=== PATIENT | female | born 1940 | race Caucasian/White ===

== ENCOUNTER 2023-03-08 07:54 | Inpatient (IN) | payer OTHER ==
[~2023-03-08] VITALS: Ht 172.7 cm; Wt 70.3 kg
[2023-03-08 07:55] VITALS: BP_SYST 121; PULSE 103; RESP 16; TEMP 97.5; O2SAT 98
[2023-03-08] MEDS ORDERED: MORPHINE 2 MG/ML INJ. SYRINGE IVP ONE (08:15)
[2023-03-08] MEDS ORDERED: MORPHINE 4 MG INJ. 4 MG/ML VIAL IVP ONE (10:45)
[2023-03-08] MEDS ORDERED: OLME20TA23 PO (10:55)
[2023-03-08] MEDS ORDERED: LEVO25TA7 PO (10:55)
[2023-03-08 11:13] LABS: BASOPHILS % (AUTO) 0.2 % (0.0-2.0); EOSINOPHILS % (AUTO) 0.1 % (0.0-4.0); HEMATOCRIT 37.6 % (36-48); HEMOGLOBIN 12.4 g/dL (12.0-16.0); LYMPHOCYTES # (AUTO) 1.2 K/uL (1.0-5.5); LYMPHOCYTES % (AUTO) 13.5 % (20.5-51.5); MEAN CORPUSCULAR HEMOGLOBIN 30 pg (27-31); MEAN CORPUSCULAR HGB CONC 33 % (32-36); MEAN CORPUSCULAR VOLUME 91 fL (79.0-98.0); MONOCYTES # (AUTO) 0.7 K/uL (0.0-1.0); MONOCYTES % (AUTO) 7.7 % (1.7-9.3); NEUTROPHILS # (AUTO) 6.8 K/uL (1.8-7.7); NEUTROPHILS % (AUTO) 78.5 % (40.0-70.0); PLATELET COUNT (AUTO) 279 K/uL (130-430); RED BLOOD CELL COUNT(AUTO) 4.11 MIL/uL (4.2-6.2); RED CELL DISTRIBUTION WIDTH 14.2 % (9.0-15.0); WHITE BLOOD COUNT (AUTO) 8.7 K/uL (4.8-10.8)
[2023-03-08 11:26] LABS: ANION GAP 10 (5-15); CARBON DIOXIDE 23 mmol/L (23-29); CHLORIDE 104 mmol/L (98-107); GLUCOSE 96 mg/dL (74-106); POTASSIUM 3.6 mmol/L (3.5-5.1); SODIUM SERUM 137 mmol/L (136-145); UREA NITROGEN, BLOOD 23 mg/dL (8-21)
[2023-03-08 11:29] LABS: PROTHROMBIN TIME 10.4 SECS (9.5-12.5)
[2023-03-08] MEDS ORDERED: HYDROmorphone 1 MG/ML INJ. CARTRIDGE IVP ONE (12:15)
[2023-03-08 15:34] LABS: PROTHROMBIN TIME 10.4 SECS (9.5-12.5)
[2023-03-08 17:15] VITALS: BP_SYST 140; PULSE 82; RESP 18; TEMP 98
[2023-03-08 20:00] VITALS: BP_SYST 123; PULSE 78; RESP 17; TEMP 97.7; O2SAT 96
[2023-03-08] MEDS ORDERED: traMADol HCL HCL 50 MG TABLET (ULTRAM) PO PRN (20:00)
[2023-03-08] MEDS ORDERED: HYDROmorphone 1 MG/ML INJ. CARTRIDGE IM PRN (23:45)
[2023-03-08] MEDS ORDERED: NALOXONE HCL 0.4 MG/ML AMP (NARCAN) IVP PRN (23:45)
[2023-03-09] VITALS: BP_SYST 122; PULSE 80; RESP 17; TEMP 98.2; O2SAT 97
[2023-03-09] MEDS ORDERED: HYDROmorphone 1 MG/ML INJ. CARTRIDGE IV PRN (00:15)
[2023-03-09 04:11] VITALS: O2SAT 98
[2023-03-09 05:08] LABS: BASOPHILS % (AUTO) 0.3 % (0.0-2.0); EOSINOPHILS % (AUTO) 0.2 % (0.0-4.0); HEMATOCRIT 34.6 % (36-48); HEMOGLOBIN 11.6 g/dL (12.0-16.0); LYMPHOCYTES # (AUTO) 1.5 K/uL (1.0-5.5); LYMPHOCYTES % (AUTO) 19.1 % (20.5-51.5); MEAN CORPUSCULAR HEMOGLOBIN 31 pg (27-31); MEAN CORPUSCULAR HGB CONC 34 % (32-36); MEAN CORPUSCULAR VOLUME 91 fL (79.0-98.0); MONOCYTES # (AUTO) 0.8 K/uL (0.0-1.0); MONOCYTES % (AUTO) 10.4 % (1.7-9.3); NEUTROPHILS # (AUTO) 5.6 K/uL (1.8-7.7); PLATELET COUNT (AUTO) 275 K/uL (130-430); RED BLOOD CELL COUNT(AUTO) 3.78 MIL/uL (4.2-6.2)
[2023-03-09 05:28] LABS: ANION GAP 11 (5-15); CALCIUM 8.9 mg/dL (8.4-11.0); CARBON DIOXIDE 24 mmol/L (23-29); CHLORIDE 105 mmol/L (98-107); CREATININE 0.68 mg/dL (0.55-1.30); GLUCOSE 100 mg/dL (74-106); POTASSIUM 3.7 mmol/L (3.5-5.1); SODIUM SERUM 140 mmol/L (136-145); UREA NITROGEN, BLOOD 28 mg/dL (8-21)
[2023-03-09] MEDS: LEVOTHYROXINE SODIUM 0.025 MG TABLET PO SCH (06:00)
[2023-03-09 08:00] VITALS: BP_SYST 133; PULSE 89; RESP 17; TEMP 98.1; O2SAT 96
[2023-03-09 08:30] VITALS: O2SAT 96
[2023-03-09] MEDS ORDERED: LOSARTAN POTASSIUM 50 MG TABLET (COZAAR) PO SCH (09:00)
[2023-03-09] MEDS: LOSARTAN POTASSIUM 50 MG TABLET (COZAAR) PO SCH (10:22)
[2023-03-09] MEDS ORDERED: oxyCODONE HCL 5 MG TABLET PO PRN ×2 (11:00)
[2023-03-09] MEDS ORDERED: TRANEXAMIC ACID 1,000 MG/10 ML VIAL ONE (11:05)
[2023-03-09] MEDS ORDERED: SEVOFLURANE 15 MIN GAS INH ONE (11:05)
[2023-03-09] MEDS ORDERED: MORPHINE SULFATE 10MG/10ML PF AMP ONE (11:05)
[2023-03-09] MEDS ORDERED: VANCOMYCIN HCL 1000 MG/VIAL IV ONE (11:05)
[2023-03-09] MEDS ORDERED: ONDANSETRON HCL 4 MG/2 ML VIAL ONE ×2 (11:05→13:44)
[2023-03-09] MEDS ORDERED: WATER FOR IRRIGATION,STERILE 1,000 ML IRRIG.SOLN IR ONE (11:05)
[2023-03-09] MEDS ORDERED: NS IRRIG SOLN 1000 ML IR ONE (11:05)
[2023-03-09] MEDS ORDERED: NS 1000 ML IV.SOLN IV ONE (11:05)
[2023-03-09] MEDS ORDERED: DEXAMETHASONE SOD PHOSPHATE 4 MG/ML VIAL ONE (11:05)
[2023-03-09] MEDS ORDERED: MORPHINE 4 MG INJ. 4 MG/ML VIAL IVP PRN (12:15)
[2023-03-09] MEDS ORDERED: METOCLOPRAMIDE HCL 10 MG/2 ML VIAL IVP PRN (12:15)
[2023-03-09] MEDS ORDERED: MORPHINE SULFATE 10MG/10ML PF AMP SP SCH (12:15)
[2023-03-09] MEDS ORDERED: DIPHENHYDRAMINE INJ 50 MG/ML VIAL IV PRN (12:15)
[2023-03-09] MEDS ORDERED: KETOROLAC TROMETHAMINE 30 MG VIAL IVP PRN (12:15)
[2023-03-09] MEDS ORDERED: ONDANSETRON HCL 4 MG/2 ML VIAL IVP PRN (12:15)
[2023-03-09] MEDS ORDERED: BISACODYL 10 MG/SUPPOSITORY RC PRN (13:15)
[2023-03-09] MEDS ORDERED: LACTULOSE 20 GM/30 ML UDC PO PRN (13:15)
[2023-03-09 16:05] VITALS: BP_SYST 130; PULSE 120; RESP 17; TEMP 98; O2SAT 95
[2023-03-09 20:00] VITALS: BP_SYST 126; PULSE 102; RESP 18; TEMP 98.8; O2SAT 96; O2SAT 98
[2023-03-09] MEDS: SENNOSIDES/DOCUSATE SODIUM 1 TAB TABLET(SENOKOT-S) PO SCH (20:36)
[2023-03-09] MEDS ORDERED: CEFAZOLIN 2 GM IVPB PREMIX 100 ML IV ONE (20:49)
[2023-03-09] MEDS: ceFAZolin SODIUM 2 GM in D5W 50 ML IV SCH (22:36)
[2023-03-10] VITALS: BP_SYST 115; PULSE 94; RESP 18; TEMP 97.7; O2SAT 96
[2023-03-10] MEDS: ceFAZolin SODIUM 2 GM in D5W 50 ML IV SCH (05:45)
[2023-03-10] MEDS: LEVOTHYROXINE SODIUM 0.025 MG TABLET PO SCH (05:48)
[2023-03-10 08:00] VITALS: BP_SYST 106; PULSE 93; RESP 17; TEMP 98.6; O2SAT 94
[2023-03-10 08:30] VITALS: O2SAT 94
[2023-03-10] MEDS: ASPIRIN 81 MG TAB.CHEW PO SCH ×2 (09:37→22:24)
[2023-03-10] MEDS: SENNOSIDES/DOCUSATE SODIUM 1 TAB TABLET(SENOKOT-S) PO SCH ×2 (09:37→22:24)
[2023-03-10] MEDS: LOSARTAN POTASSIUM 50 MG TABLET (COZAAR) PO SCH (09:37)
[2023-03-10] MEDS ORDERED: MELO-89 PO (11:53)
[2023-03-10] MEDS ORDERED: ASA81 PO (11:53)
[2023-03-10] MEDS ORDERED: TRAM50TA2 PO (11:53)
[2023-03-10 15:58] VITALS: BP_SYST 106; PULSE 93; RESP 17; TEMP 98.6; O2SAT 94
[2023-03-10 20:00] VITALS: BP_SYST 110; PULSE 89; RESP 18; TEMP 97.8; O2SAT 95
[2023-03-10 22:15] VITALS: PULSE 82; RESP 20; TEMP 97.8
[2023-03-10] MEDS: traMADol HCL HCL 50 MG TABLET (ULTRAM) PO PRN (22:24)
[2023-03-11] MEDS: traMADol HCL HCL 50 MG TABLET (ULTRAM) PO PRN (04:44)
[2023-03-11] MEDS: LEVOTHYROXINE SODIUM 0.025 MG TABLET PO SCH (06:01)
[2023-03-11 08:00] VITALS: BP_SYST 112; PULSE 95; RESP 18; TEMP 98; O2SAT 96
== END 2023-03-11 08:45 | DRG 522 ==
LOC: SED 07:54 → SMU 14:02
PROVIDERS: ADMIT Specialist; ATTEND Specialist
PROC: 0SRR0JZ Replacement of Right Hip Joint, Femoral Surface with Synthetic Substitute, Open Approach (ICD-10-PCS; principal; 2023-03-10)
DX: S72.011A Unspecified intracapsular fracture of right femur, initial encounter for closed fracture (principal); W18.39XA Other fall on same level, initial encounter; I10 Essential (primary) hypertension; E03.9 Hypothyroidism, unspecified; Z88.2 Allergy status to sulfonamides; Z79.899 Other long term (current) drug therapy; Z90.49 Acquired absence of other specified parts of digestive tract; Y93.89 Activity, other specified; Y92.89 Other specified places as the place of occurrence of the external cause; Y99.8 Other external cause status
CPT/HCPCS: 36415; 71045; 72131; 72170-TC; 72192-TC; 76376; 80048; 84443; 85025; 85610-TC; 85730-TC; 86886; 86900; 86901; 87081; 88305; 88311; 93005; 93306; 97110-GP; 97116-GP; 97530-GP; 99285; A4649; C1776; J0690; J1100; J1170; J2270; J2274; J2405; J3370; J3490; J7030; J7060

== ENCOUNTER 2023-05-20 07:24 | Inpatient (IN) | payer OTHER ==
[~2023-05-20] VITALS: Ht 172.7 cm; Wt 68.0 kg
[~2023-05-20 07:24] MED LIST: ASA81 PO; LEVO25TA7 PO; MELO-89 PO; OLME20TA23 PO; TRAM50TA2 PO
[2023-05-20 07:32] VITALS: BP_SYST 94; PULSE 97; RESP 20; TEMP 98; O2SAT 95
[2023-05-20 08:06] LABS: BASOPHILS % (AUTO) 0.1 % (0.0-2.0); HEMATOCRIT 33.9 % (36-48); HEMOGLOBIN 11.4 g/dL (12.0-16.0); LYMPHOCYTES # (AUTO) 0.5 K/uL (1.0-5.5); LYMPHOCYTES % (AUTO) 2.4 % (20.5-51.5); MEAN CORPUSCULAR HEMOGLOBIN 29 pg (27-31); MEAN CORPUSCULAR HGB CONC 34 % (32-36); MEAN CORPUSCULAR VOLUME 87 fL (79.0-98.0); MONOCYTES # (AUTO) 1.8 K/uL (0.0-1.0); MONOCYTES % (AUTO) 9.2 % (1.7-9.3); NEUTROPHILS # (AUTO) 17.5 K/uL (1.8-7.7); NEUTROPHILS % (AUTO) 88.3 % (40.0-70.0); PLATELET COUNT (AUTO) 293 K/uL (130-430); RED BLOOD CELL COUNT(AUTO) 3.92 MIL/uL (4.2-6.2); RED CELL DISTRIBUTION WIDTH 17.4 % (9.0-15.0); WHITE BLOOD COUNT (AUTO) 19.8 K/uL (4.8-10.8)
[2023-05-20 08:26] LABS: INR 1.3 (0.8-1.2); PROTHROMBIN TIME 13.1 SECS (9.5-12.5)
[2023-05-20 08:29] LABS: ALANINE AMINOTRANSFERASE 11 U/L (12-78); ALBUMIN 2.6 g/dL (3.4-4.8); ASPARTATE AMINOTRANSFERASE 14 U/L (10-37); BILIRUBIN,DIRECT 0.2 mg/dL (0.0-0.3); TOTAL BILIRUBIN 0.5 mg/dL (0.0-1.0); TOTAL PROTEIN, SERUM 5.8 g/dL (6.4-8.3)
[2023-05-20] MEDS ORDERED: VANCOMYCIN HCL ORAL SOLUTION 125 MG/5 ML, 150 ML PO SCH ×2 (08:45→13:00)
[2023-05-20] MEDS: ONDANSETRON HCL 4 MG/2 ML VIAL IVP ONE (08:47)
[2023-05-20] MEDS: NS 1000 ML IV.SOLN IV ONE (08:48)
[2023-05-20] MEDS ORDERED: PANT20TA2 PO (09:06)
[2023-05-20] MEDS ORDERED: APIX5TAB PO (09:08)
[2023-05-20] MEDS ORDERED: LORA-258 PO (09:08)
[2023-05-20] MEDS: VANCOMYCIN HCL ORAL SOLUTION 125 MG/5 ML, 150 ML PO ONE (09:40)
[2023-05-20 10:00] LABS: ANION GAP 10 (5-15); CALCIUM 8.5 mg/dL (8.4-11.0); CARBON DIOXIDE 22 mmol/L (23-29); CHLORIDE 100 mmol/L (98-107); CREATININE 1.05 mg/dL (0.55-1.30); GLUCOSE 134 mg/dL (74-106); POTASSIUM 3.3 mmol/L (3.5-5.1); SODIUM SERUM 132 mmol/L (136-145); UREA NITROGEN, BLOOD 18 mg/dL (8-21)
[2023-05-20] MEDS ORDERED: HYDROcodone/ACETAMIN 5-325 MG TAB (NORCO/ VICODIN) PO PRN (11:45)
[2023-05-20] MEDS ORDERED: HYDROcodone/ACETAMIN 10-325 MG TAB PO PRN (11:45)
[2023-05-20] MEDS ORDERED: MORPHINE 2 MG/ML INJ. SYRINGE IVP PRN (11:45)
[2023-05-20] MEDS ORDERED: ACETAMINOPHEN 325 MG TABLET PO PRN ×2 (11:45)
[2023-05-20] MEDS ORDERED: PANTOPRAZOLE SODIUM 40 MG/VIAL (PROTONIX) IVP SCH (12:00)
[2023-05-20] MEDS: NACL 0.9% 1,000 ML IV SCH (12:13)
[2023-05-20] MEDS: APIXABAN 2.5 MG TABLET PO ONE (12:14)
[2023-05-20] MEDS: LEVOTHYROXINE SODIUM 0.025 MG TABLET PO ONE (12:15)
[2023-05-20] MEDS: ONDANSETRON HCL 4 MG/2 ML VIAL IVP PRN (12:33)
[2023-05-20 14:31] VITALS: BP_SYST 100; PULSE 84; RESP 17; TEMP 98.7; O2SAT 93
[2023-05-20 16:30] VITALS: BP_SYST 110; PULSE 82; RESP 16; TEMP 99.3; O2SAT 96
[2023-05-20 20:30] VITALS: BP_SYST 121; PULSE 79; RESP 18; TEMP 98.8; O2SAT 95
[2023-05-20] MEDS: VANCOMYCIN HCL ORAL SOLUTION 125 MG/5 ML, 150 ML PO SCH (20:54)
[2023-05-20] MEDS: APIXABAN 2.5 MG TABLET PO SCH (20:55)
[2023-05-20 22:00] VITALS: O2SAT 95
[2023-05-21] VITALS (7 sets, daily range): BP systolic 102–131; PULSE 73–84; RESP 16–20; TEMP 97.5–98.9; O2SAT 86–98
[2023-05-21 06:02] LABS: HEMOGLOBIN 10.2 g/dL (12.0-16.0); MEAN CORPUSCULAR VOLUME 87 fL (79.0-98.0); RED CELL DISTRIBUTION WIDTH 17.3 % (9.0-15.0)
[2023-05-21 06:26] LABS: ALANINE AMINOTRANSFERASE 9 U/L (12-78); ALBUMIN 1.9 g/dL (3.4-4.8); ANION GAP 13 (5-15); ASPARTATE AMINOTRANSFERASE 13 U/L (10-37); CALCIUM 7.7 mg/dL (8.4-11.0); CARBON DIOXIDE 18 mmol/L (23-29); CHLORIDE 106 mmol/L (98-107); CREATININE 0.68 mg/dL (0.55-1.30); GLUCOSE 102 mg/dL (74-106); POTASSIUM 3.1 mmol/L (3.5-5.1); SODIUM SERUM 137 mmol/L (136-145); TOTAL BILIRUBIN 0.4 mg/dL (0.0-1.0); TOTAL PROTEIN, SERUM 4.6 g/dL (6.4-8.3); UREA NITROGEN, BLOOD 21 mg/dL (8-21)
[2023-05-21 06:37] LABS: HEMATOCRIT 30.7 % (36-48); MEAN CORPUSCULAR HEMOGLOBIN 29 pg (27-31); MEAN CORPUSCULAR HGB CONC 33 % (32-36); PLATELET COUNT (AUTO) 262 K/uL (130-430); RED BLOOD CELL COUNT(AUTO) 3.55 MIL/uL (4.2-6.2)
[2023-05-21] MEDS: LEVOTHYROXINE SODIUM 0.025 MG TABLET PO SCH (07:06)
[2023-05-21] MEDS: POTASSIUM CHLORIDE 20 MEQ/PKT PACKET PO SCH (08:56)
[2023-05-21 10:15] LABS: WHITE BLOOD COUNT (AUTO) 23.8 K/uL (4.8-10.8)
[2023-05-21 10:21] LABS: ANISOCYTOSIS 1+; ATYPICAL LYMPHOCYTES % 0 % (0-0); BAND % (MANUAL) 37 % (0-6); BASOPHILS % (MANUAL) 0 % (0-2); EOSINOPHILS % (MANUAL) 0 % (0-7); HYPOCHROMASIA 1+; LYMPHOCYTES % (MANUAL) 3 % (20-46); MONOCYTES % (MANUAL) 4 % (0-11); PLATELET ESTIMATE ADEQUATE (ADEQUATE)
[2023-05-21] MEDS: POTASSIUM CHLORIDE 40 MEQ, LIDOCAINE JECT 2% PF 100 MG 75 MG in NS 250 ML IV ONE (12:27)
[2023-05-21] MEDS ORDERED: SACCHAROMYCES BOULARDII 250 MG CAPSULE (FLORASTOR) PO SCH (13:00)
[2023-05-21] MEDS: LACTOBACILLUS RHAMNOSUS GG 1 CAP CAPSULE PO ONE (13:51)
[2023-05-21] MEDS: FIDAXOMICIN 200 MG TABLET PO ONE (13:52)
[2023-05-21] MEDS: metroNIDAZOLE 500 mg/NS 100 ML IV ONE (16:55)
[2023-05-21] MEDS: LACTOBACILLUS RHAMNOSUS GG 1 CAP CAPSULE PO SCH (20:57)
[2023-05-21] MEDS: metroNIDAZOLE 500 mg/NS 100 ML IV SCH (20:59)
[2023-05-21] MEDS: FIDAXOMICIN 200 MG TABLET PO SCH (21:00)
[2023-05-22] VITALS (7 sets, daily range): BP systolic 108–124; PULSE 72–79; RESP 16–18; TEMP 96.3–99.3; O2SAT 94–97
[2023-05-22 05:58] LABS: BASOPHILS % (AUTO) 0.1 % (0.0-2.0); EOSINOPHILS # (AUTO) 0.1 K/uL (0.0-0.4); EOSINOPHILS % (AUTO) 0.5 % (0.0-4.0); HEMATOCRIT 31.5 % (36-48); HEMOGLOBIN 10.4 g/dL (12.0-16.0); LYMPHOCYTES # (AUTO) 0.6 K/uL (1.0-5.5); LYMPHOCYTES % (AUTO) 2.1 % (20.5-51.5); MEAN CORPUSCULAR HEMOGLOBIN 29 pg (27-31); MEAN CORPUSCULAR HGB CONC 33 % (32-36); MEAN CORPUSCULAR VOLUME 86 fL (79.0-98.0); MONOCYTES # (AUTO) 1.1 K/uL (0.0-1.0); MONOCYTES % (AUTO) 3.9 % (1.7-9.3); NEUTROPHILS # (AUTO) 27.1 K/uL (1.8-7.7); NEUTROPHILS % (AUTO) 93.4 % (40.0-70.0); PLATELET COUNT (AUTO) 256 K/uL (130-430); RED BLOOD CELL COUNT(AUTO) 3.65 MIL/uL (4.2-6.2); RED CELL DISTRIBUTION WIDTH 17.1 % (9.0-15.0)
[2023-05-22 06:25] LABS: ALANINE AMINOTRANSFERASE 11 U/L (12-78); ALBUMIN 1.8 g/dL (3.4-4.8); ANION GAP 11 (5-15); ASPARTATE AMINOTRANSFERASE 12 U/L (10-37); CALCIUM 7.6 mg/dL (8.4-11.0); CARBON DIOXIDE 20 mmol/L (23-29); CHLORIDE 105 mmol/L (98-107); CREATININE 0.65 mg/dL (0.55-1.30); GLUCOSE 103 mg/dL (74-106); POTASSIUM 3.2 mmol/L (3.5-5.1); SODIUM SERUM 136 mmol/L (136-145); TOTAL BILIRUBIN 0.4 mg/dL (0.0-1.0); TOTAL PROTEIN, SERUM 4.5 g/dL (6.4-8.3); UREA NITROGEN, BLOOD 20 mg/dL (8-21)
[2023-05-22] MEDS ORDERED: ASA81 PO (12:25)
[2023-05-22] MEDS ORDERED: PANT20TA2 PO (12:32)
[2023-05-22] MEDS: POTASSIUM CHLORIDE 20 MEQ TABLET.ER PO ONE (13:00)
[2023-05-22] MEDS: TEMAZEPAM 7.5 MG CAPSULE PO PRN (20:28)
[2023-05-23] VITALS (7 sets, daily range): BP systolic 118–123; PULSE 75–82; RESP 16–17; TEMP 98–98.3; O2SAT 94–98
[2023-05-23 05:43] LABS: HEMATOCRIT 29.5 % (36-48); HEMOGLOBIN 9.7 g/dL (12.0-16.0); MEAN CORPUSCULAR HEMOGLOBIN 28 pg (27-31); MEAN CORPUSCULAR HGB CONC 33 % (32-36); MEAN CORPUSCULAR VOLUME 87 fL (79.0-98.0); PLATELET COUNT (AUTO) 247 K/uL (130-430); RED BLOOD CELL COUNT(AUTO) 3.41 MIL/uL (4.2-6.2); RED CELL DISTRIBUTION WIDTH 17.7 % (9.0-15.0); WHITE BLOOD COUNT (AUTO) 19.4 K/uL (4.8-10.8)
[2023-05-23 06:10] LABS: ANION GAP 7 (5-15); CALCIUM 7.2 mg/dL (8.4-11.0); CARBON DIOXIDE 21 mmol/L (23-29); CHLORIDE 108 mmol/L (98-107); CREATININE 0.53 mg/dL (0.55-1.30); GLUCOSE 83 mg/dL (74-106); SODIUM SERUM 136 mmol/L (136-145); UREA NITROGEN, BLOOD 15 mg/dL (8-21)
[2023-05-23 07:43] LABS: ANISOCYTOSIS 1+; BAND % (MANUAL) 8 % (0-6); BASOPHILS % (MANUAL) 0 % (0-2); EOSINOPHILS % (MANUAL) 0 % (0-7); LYMPHOCYTES % (MANUAL) 5 % (20-46); METAMYELOCYTES % 1 % (0-0); MONOCYTES % (MANUAL) 6 % (0-11); PLATELET ESTIMATE ADEQUATE (ADEQUATE)
[2023-05-23 07:44] LABS: OVALOCYTES FEW
[2023-05-23] MEDS: CALCIUM GLUCONATE 2 GM in NS 100 ML IV ONE (11:00)
[2023-05-23] MEDS: POTASSIUM CHLORIDE 20 MEQ TABLET.ER PO ONE (14:29)
[2023-05-24 00:30] VITALS: BP_SYST 111; PULSE 70; RESP 18; TEMP 98.2; O2SAT 94
[2023-05-24 05:55] LABS: BASOPHILS % (AUTO) 0.3 % (0.0-2.0); EOSINOPHILS # (AUTO) 0.2 K/uL (0.0-0.4); EOSINOPHILS % (AUTO) 1.8 % (0.0-4.0); HEMATOCRIT 29.8 % (36-48); LYMPHOCYTES % (AUTO) 7.8 % (20.5-51.5); MEAN CORPUSCULAR HEMOGLOBIN 29 pg (27-31); MEAN CORPUSCULAR HGB CONC 34 % (32-36); MEAN CORPUSCULAR VOLUME 86 fL (79.0-98.0); MONOCYTES # (AUTO) 0.8 K/uL (0.0-1.0); MONOCYTES % (AUTO) 5.8 % (1.7-9.3); NEUTROPHILS # (AUTO) 11.1 K/uL (1.8-7.7); NEUTROPHILS % (AUTO) 84.3 % (40.0-70.0); PLATELET COUNT (AUTO) 292 K/uL (130-430); RED BLOOD CELL COUNT(AUTO) 3.49 MIL/uL (4.2-6.2); RED CELL DISTRIBUTION WIDTH 17.8 % (9.0-15.0); WHITE BLOOD COUNT (AUTO) 13.2 K/uL (4.8-10.8)
[2023-05-24 06:00] LABS: ERYTHROCYTE SEDIMENTATION RATE 6 MM/HR (0-20)
[2023-05-24 06:35] LABS: ALANINE AMINOTRANSFERASE 8 U/L (12-78); ALBUMIN 1.7 g/dL (3.4-4.8); ANION GAP 7 (5-15); ASPARTATE AMINOTRANSFERASE 14 U/L (10-37); CALCIUM 7.5 mg/dL (8.4-11.0); CARBON DIOXIDE 22 mmol/L (23-29); CHLORIDE 107 mmol/L (98-107); CREATININE 0.55 mg/dL (0.55-1.30); GLUCOSE 82 mg/dL (74-106); SODIUM SERUM 136 mmol/L (136-145); TOTAL BILIRUBIN 0.3 mg/dL (0.0-1.0); TOTAL PROTEIN, SERUM 4.2 g/dL (6.4-8.3); UREA NITROGEN, BLOOD 10 mg/dL (8-21)
[2023-05-24 08:00] VITALS: O2SAT 98
[2023-05-24 08:16] LABS: POTASSIUM 2.8 mmol/L (3.5-5.1)
[2023-05-24 08:27] VITALS: BP_SYST 115; PULSE 74; RESP 18; TEMP 98; O2SAT 97
[2023-05-24] MEDS: POTASSIUM CHLORIDE 40 MEQ, LIDOCAINE JECT 2% PF 100 MG 50 MG in NS 250 ML IV ONE (10:52)
[2023-05-24 11:12] VITALS: BP_SYST 107; PULSE 66; RESP 16; TEMP 96.8; O2SAT 96
[2023-05-24 15:20] VITALS: BP_SYST 131; PULSE 83; RESP 16; TEMP 97; O2SAT 96
[2023-05-24 19:00] VITALS: BP_SYST 115; PULSE 73; RESP 20; TEMP 97.8; O2SAT 96
[2023-05-25] VITALS (7 sets, daily range): BP systolic 105–131; PULSE 70–75; RESP 15–20; TEMP 97.1–98.5; O2SAT 95–99
[2023-05-25 04:57] LABS: BASOPHILS % (AUTO) 0.4 % (0.0-2.0); EOSINOPHILS # (AUTO) 0.3 K/uL (0.0-0.4); EOSINOPHILS % (AUTO) 2.8 % (0.0-4.0); HEMATOCRIT 29.6 % (36-48); HEMOGLOBIN 9.9 g/dL (12.0-16.0); LYMPHOCYTES # (AUTO) 1.2 K/uL (1.0-5.5); MEAN CORPUSCULAR HEMOGLOBIN 29 pg (27-31); MEAN CORPUSCULAR HGB CONC 34 % (32-36); MEAN CORPUSCULAR VOLUME 86 fL (79.0-98.0); MONOCYTES # (AUTO) 0.6 K/uL (0.0-1.0); MONOCYTES % (AUTO) 6.5 % (1.7-9.3); NEUTROPHILS # (AUTO) 7.7 K/uL (1.8-7.7); NEUTROPHILS % (AUTO) 78.3 % (40.0-70.0); PLATELET COUNT (AUTO) 288 K/uL (130-430); RED BLOOD CELL COUNT(AUTO) 3.46 MIL/uL (4.2-6.2); RED CELL DISTRIBUTION WIDTH 17.7 % (9.0-15.0); WHITE BLOOD COUNT (AUTO) 9.8 K/uL (4.8-10.8)
[2023-05-25 05:18] LABS: ANION GAP 7 (5-15); CALCIUM 7.4 mg/dL (8.4-11.0); CARBON DIOXIDE 23 mmol/L (23-29); CHLORIDE 109 mmol/L (98-107); CREATININE 0.57 mg/dL (0.55-1.30); GLUCOSE 85 mg/dL (74-106); POTASSIUM 3.1 mmol/L (3.5-5.1); SODIUM SERUM 139 mmol/L (136-145); UREA NITROGEN, BLOOD 7 mg/dL (8-21)
[2023-05-25] MEDS: POTASSIUM CHLORIDE 20 MEQ TABLET.ER PO ONE (16:41)
[2023-05-26] VITALS (8 sets, daily range): BP systolic 111–136; PULSE 71–98; RESP 15–18; TEMP 97.4–98.4; O2SAT 0–98
[2023-05-26] MEDS ORDERED: FIDA200T PO (13:28)
[2023-05-26] MEDS ORDERED: L.RH1CAP PO (13:28)
[2023-05-27] VITALS: BP_SYST 120; PULSE 67; RESP 18; TEMP 97.5; O2SAT 96
[2023-05-27 07:23] VITALS: BP_SYST 125; PULSE 69; RESP 16; TEMP 96.6; O2SAT 97
[2023-05-27 09:43] VITALS: BP_SYST 125; PULSE 69; RESP 16; TEMP 96.6; O2SAT 97
[2023-05-27 11:27] VITALS: BP_SYST 126; PULSE 71; RESP 16; TEMP 96.3; O2SAT 97
== END 2023-05-27 14:00 | disposition home or self-care (01) | DRG 871 ==
LOC: SED 07:24 → STU 11:42 → SMU 05-25 10:16
PROVIDERS: ADMIT Family Medicine; ATTEND Family Medicine
DX: A41.9 Sepsis, unspecified organism (principal); E43 Unspecified severe protein-calorie malnutrition; A04.71 Enterocolitis due to Clostridium difficile, recurrent; E87.1 Hypo-osmolality and hyponatremia; K21.9 Gastro-esophageal reflux disease without esophagitis; I10 Essential (primary) hypertension; E03.9 Hypothyroidism, unspecified; Z96.641 Presence of right artificial hip joint; D64.9 Anemia, unspecified; E83.51 Hypocalcemia; E87.6 Hypokalemia; Z88.2 Allergy status to sulfonamides; Z79.01 Long term (current) use of anticoagulants; Z86.718 Personal history of other venous thrombosis and embolism; Z78.9 Other specified health status; Z90.49 Acquired absence of other specified parts of digestive tract; Z90.710 Acquired absence of both cervix and uterus; Z68.22 Body mass index [BMI] 22.0-22.9, adult; T37 Poisoning by, adverse effect of and underdosing of other systemic anti-infectives and antiparasitics
CPT/HCPCS: 36415; 71045; 74018; 80048; 80053; 80076; 83605; 84484; 85007; 85025; 85027; 85610; 85651; 85730; 87040; 87230; 93005; 97110-GP; 97112-GP; 97116-GP; 97530-GP; 99291; G0378; J0610; J2405; J3480; J3490; J7050

== ENCOUNTER 2023-06-09 19:25 | Inpatient (IN) | payer OTHER ==
[~2023-06-09] VITALS: Ht 172.7 cm; Wt 68.0 kg
[~2023-06-09 19:25] MED LIST changes: +APIX5TAB PO; -ASA81 PO; +FIDA200T PO; +L.RH1CAP PO; +LORA-258 PO; -MELO-89 PO; +PANT20TA2 PO; -TRAM50TA2 PO
[2023-06-09 19:38] VITALS: BP_SYST 110; PULSE 92; RESP 20; TEMP 97.1; O2SAT 96
[2023-06-09 20:06] LABS: HEMATOCRIT 33.1 % (36-48); HEMOGLOBIN 11.7 g/dL (12.0-16.0); MEAN CORPUSCULAR HEMOGLOBIN 30 pg (27-31); MEAN CORPUSCULAR HGB CONC 35 % (32-36); MEAN CORPUSCULAR VOLUME 85 fL (79.0-98.0); PLATELET COUNT (AUTO) 407 K/uL (130-430); RED BLOOD CELL COUNT(AUTO) 3.89 MIL/uL (4.2-6.2); RED CELL DISTRIBUTION WIDTH 19.7 % (9.0-15.0); WHITE BLOOD COUNT (AUTO) 8.1 K/uL (4.8-10.8)
[2023-06-09 20:13] LABS: ANION GAP 10 (5-15); CALCIUM 9.2 mg/dL (8.4-11.0); CARBON DIOXIDE 26 mmol/L (23-29); CHLORIDE 96 mmol/L (98-107); CREATININE 0.67 mg/dL (0.55-1.30); GLUCOSE 146 mg/dL (74-106); POTASSIUM 3.6 mmol/L (3.5-5.1); SODIUM SERUM 132 mmol/L (136-145); UREA NITROGEN, BLOOD 8 mg/dL (8-21)
[2023-06-09 20:22] LABS: BAND % (MANUAL) 0 % (0-6); LYMPHOCYTES % (MANUAL) 16 % (20-46)
[2023-06-09 20:23] LABS: ANISOCYTOSIS 1+; ATYPICAL LYMPHOCYTES % 2 % (0-0); BASOPHILS % (MANUAL) 0 % (0-2); EOSINOPHILS % (MANUAL) 1 % (0-7); MONOCYTES % (MANUAL) 5 % (0-11); PLATELET ESTIMATE ADEQUATE (ADEQUATE)
[2023-06-09 20:26] LABS: ALANINE AMINOTRANSFERASE 425 U/L (12-78); ALBUMIN 2.2 g/dL (3.4-4.8); ASPARTATE AMINOTRANSFERASE 646 U/L (10-37); BILIRUBIN,DIRECT 18.1 mg/dL (0.0-0.3); LIPASE 190 U/L (16-77); TOTAL PROTEIN, SERUM 5.8 g/dL (6.4-8.3)
[2023-06-09 20:28] LABS: ALCOHOL, BLOOD < 3 mg/dL (<10)
[2023-06-09 20:30] LABS: TOTAL BILIRUBIN 20.6 mg/dL (0.0-1.0)
[2023-06-09 21:14] LABS: BILIRUBIN,URINE 3+ (NEGATIVE); BLOOD, URINE NEGATIVE (NEGATIVE); CLARITY/URINE CLEAR (CLEAR); COLOR,URINE YELLOW (YELLOW); GLUCOSE,URINE TRACE (NEGATIVE); KETONES,URINE NEGATIVE (NEGATIVE); LEUKOCYTE ESTERASE ,URINE TRACE (NEGATIVE); NITRITE, URINE NEGATIVE (NEGATIVE); PROTEIN URINE NEGATIVE (NEGATIVE); UROBILINOGEN,URINE 0.2 (0.2-1.0)
[2023-06-09 21:26] LABS: BARBITURATE, URINE NEGATIVE (NEG <=200); BENZODIAZEPINE, URINE NEGATIVE (NEG <=150); CANNABINOID, URINE NEGATIVE (NEG <=50); COCAINE, URINE NEGATIVE (NEG <=150); METHAMPHETAMINES SCREEN,URINE NEGATIVE (NEG <=500); OPIATE, URINE NEGATIVE (NEG <=100); PHENCYCLIDINE SCREEN,URINE NEGATIVE (NEG <=25); UR TRICYCLIC ANTIDEPRESSANTS NEGATIVE (NEG <=300); URINE AMPHETAMINE NEGATIVE (NEG <=500); URINE METHADONE NEGATIVE (NEG <=200); URINE OXYCODONE SCREEN NEGATIVE (NEG <=100)
[2023-06-09 21:27] LABS: BACTERIA,URINE RARE /HPF (None Seen); RBC,URINE NONE SEEN /HPF (0-3)
[2023-06-09 21:28] LABS: MUCUS,URINE None Seen /LPF (None Seen)
[2023-06-09] MEDS: D5/0.45 NS 1,000 ML IV SCH (22:59)
[2023-06-10] MEDS: MORPHINE 4 MG INJ. 4 MG/ML VIAL IVP PRN (00:46)
[2023-06-10] MEDS: ONDANSETRON HCL 4 MG/2 ML VIAL IVP PRN (00:56)
[2023-06-10 09:27] LABS: LIPASE 119 U/L (16-77); THYROID STIMULATING HORMONE 4.39 uIu/mL (0.34-4.82)
[2023-06-10 09:33] LABS: ACETAMINOPHEN < 1 ug/mL (1-30)
[2023-06-10] MEDS: PANTOPRAZOLE SODIUM 40 MG/VIAL (PROTONIX) IVP SCH (11:05)
[2023-06-10 11:11] VITALS: BP_SYST 112; PULSE 70; RESP 16; TEMP 97; O2SAT 93
[2023-06-10 11:23] VITALS: BP_SYST 112; PULSE 70; RESP 16; TEMP 97; O2SAT 95
[2023-06-10 15:00] VITALS: BP_SYST 125; PULSE 71; RESP 16; TEMP 97; O2SAT 93
[2023-06-10 19:51] VITALS: BP_SYST 119; PULSE 74; RESP 16; TEMP 97.6; O2SAT 95
[2023-06-10 19:54] VITALS: O2SAT 95
[2023-06-10 20:00] VITALS: BP_SYST 124; PULSE 76; RESP 16; TEMP 98.3; O2SAT 95
[2023-06-11] VITALS (8 sets, daily range): BP systolic 92–135; PULSE 66–78; RESP 16–18; TEMP 96.5–97.7; O2SAT 93–96
[2023-06-11 07:19] LABS: HEMATOCRIT 31.5 % (36-48); HEMOGLOBIN 10.9 g/dL (12.0-16.0); MEAN CORPUSCULAR HEMOGLOBIN 30 pg (27-31); MEAN CORPUSCULAR HGB CONC 35 % (32-36); MEAN CORPUSCULAR VOLUME 86 fL (79.0-98.0); PLATELET COUNT (AUTO) 378 K/uL (130-430); RED BLOOD CELL COUNT(AUTO) 3.66 MIL/uL (4.2-6.2); RED CELL DISTRIBUTION WIDTH 19.8 % (9.0-15.0); WHITE BLOOD COUNT (AUTO) 7.2 K/uL (4.8-10.8)
[2023-06-11 07:20] LABS: INR 1.1 (0.8-1.2)
[2023-06-11 07:56] LABS: ALANINE AMINOTRANSFERASE 386 U/L (12-78); ALBUMIN 1.8 g/dL (3.4-4.8); ANION GAP 9 (5-15); ASPARTATE AMINOTRANSFERASE 595 U/L (10-37); CALCIUM 8.5 mg/dL (8.4-11.0); CARBON DIOXIDE 25 mmol/L (23-29); CHLORIDE 100 mmol/L (98-107); CREATININE 0.55 mg/dL (0.55-1.30); GLUCOSE 85 mg/dL (74-106); LIPASE 122 U/L (16-77); POTASSIUM 3.8 mmol/L (3.5-5.1); SODIUM SERUM 134 mmol/L (136-145); UREA NITROGEN, BLOOD 6 mg/dL (8-21)
[2023-06-11 07:59] LABS: TOTAL BILIRUBIN 20.4 mg/dL (0.0-1.0)
[2023-06-11 08:10] LABS: TOTAL IRON BIND. CAPACITY 159 ug/dL (250-450)
[2023-06-11 09:51] LABS: ATYPICAL LYMPHOCYTES % 4 % (0-0); LYMPHOCYTES % (MANUAL) 7 % (20-46)
[2023-06-11 09:52] LABS: ANISOCYTOSIS 1+; BASOPHILS % (MANUAL) 0 % (0-2); EOSINOPHILS % (MANUAL) 2 % (0-7); MONOCYTES % (MANUAL) 5 % (0-11); PLATELET ESTIMATE ADEQUATE (ADEQUATE); TARGET CELLS FEW
[2023-06-11 10:06] LABS: AFP, TUMOR MARKER 2.4 ng/mL (0.0-8.7)
[2023-06-11] MEDS ORDERED: LORazepam 1 MG TABLET PO PRN (11:15)
[2023-06-11] MEDS ORDERED: PANTOPRAZOLE SODIUM 40 MG TAB PO PRN (11:15)
[2023-06-11] MEDS ORDERED: LANSOPRAZOLE 30 MG CAPSULE.DR PO PRN (11:30)
[2023-06-11] MEDS: HEPARIN SODIUM,PORCINE 5,000 UNITS/ML VIAL SUBCUT ONE (13:06)
[2023-06-11] MEDS: LEVOTHYROXINE SODIUM 0.025 MG TABLET PO ONE (13:06)
[2023-06-11] MEDS: HEPARIN SODIUM,PORCINE 5,000 UNITS/ML VIAL SUBCUT SCH (20:42)
[2023-06-11] MEDS: TEMAZEPAM 7.5 MG CAPSULE PO SCH (20:51)
[2023-06-12] VITALS (8 sets, daily range): BP systolic 110–132; PULSE 72–93; RESP 16–18; TEMP 96.9–98; O2SAT 95–99
[2023-06-12 06:33] LABS: HEMOGLOBIN 9.9 g/dL (12.0-16.0)
[2023-06-12 06:56] LABS: HEMATOCRIT 29.1 % (36-48); MEAN CORPUSCULAR HEMOGLOBIN 29 pg (27-31); MEAN CORPUSCULAR HGB CONC 34 % (32-36); MEAN CORPUSCULAR VOLUME 86 fL (79.0-98.0); PLATELET COUNT (AUTO) 353 K/uL (130-430); RED BLOOD CELL COUNT(AUTO) 3.38 MIL/uL (4.2-6.2); RED CELL DISTRIBUTION WIDTH 19.9 % (9.0-15.0); WHITE BLOOD COUNT (AUTO) 7.5 K/uL (4.8-10.8)
[2023-06-12 06:59] LABS: ALANINE AMINOTRANSFERASE 324 U/L (12-78); ALBUMIN 1.6 g/dL (3.4-4.8); ANION GAP 9 (5-15); ASPARTATE AMINOTRANSFERASE 479 U/L (10-37); BILIRUBIN,DIRECT 15.9 mg/dL (0.0-0.3); CALCIUM 8.1 mg/dL (8.4-11.0); CARBON DIOXIDE 25 mmol/L (23-29); CHLORIDE 102 mmol/L (98-107); CREATININE 0.68 mg/dL (0.55-1.30); GLUCOSE 76 mg/dL (74-106); LIPASE 97 U/L (16-77); POTASSIUM 3.5 mmol/L (3.5-5.1); SODIUM SERUM 136 mmol/L (136-145); TOTAL PROTEIN, SERUM 4.5 g/dL (6.4-8.3); UREA NITROGEN, BLOOD 5 mg/dL (8-21)
[2023-06-12 07:16] LABS: INR 1.1 (0.8-1.2); PROTHROMBIN TIME 11.1 SECS (9.5-12.5)
[2023-06-12] MEDS ORDERED: INDOMETHACIN 50 MG SUPP.RECT RC ONE (07:45)
[2023-06-12] MEDS ORDERED: LR 1,000 ML IV.SOLN IV ONE (08:01)
[2023-06-12] MEDS ORDERED: ePHEDrine sulfate 50 MG/ML VIAL ONE (08:01)
[2023-06-12] MEDS ORDERED: PROPOFOL 200MG/ 20ML VIAL (DIPRIVAN) IV ONE (08:01)
[2023-06-12] MEDS ORDERED: SUCCINYLCHOLINE CHLORIDE 20 MG/ML(QUELICIN) ONE (08:01)
[2023-06-12] MEDS ORDERED: SEVOFLURANE 15 MIN GAS INH ONE (08:01)
[2023-06-12] MEDS ORDERED: LIDOCAINE JECT 2% PF 100 MG/5ML SYRINGE ONE (08:01)
[2023-06-12 08:11] LABS: TOTAL BILIRUBIN 19.6 mg/dL (0.0-1.0)
[2023-06-12] MEDS ORDERED: iohexoL 240 mgI/mL, 50 ML INFUS..BTL IV ONE (08:20)
[2023-06-12] MEDS ORDERED: iohexoL 180 mgI/mL, 20 ML VIAL IT ONE (08:20)
[2023-06-12] MEDS: INDOMETHACIN 50 MG SUPP.RECT RC ONE (08:35)
[2023-06-12] MEDS ORDERED: ONDANSETRON HCL 4 MG/2 ML VIAL IVP PRN (08:45)
[2023-06-12] MEDS ORDERED: HYDROmorphone 1 MG/ML INJ. CARTRIDGE IVP PRN ×2 (08:45)
[2023-06-12] MEDS ORDERED: hydrALAZINE HCL 20 MG/ML VIAL IV PRN (08:45)
[2023-06-12] MEDS ORDERED: NALOXONE HCL 0.4 MG/ML AMP (NARCAN) IVP PRN (08:45)
[2023-06-12] MEDS: LEVOTHYROXINE SODIUM 0.025 MG TABLET PO SCH (09:00)
[2023-06-12] MEDS: LOSARTAN POTASSIUM 50 MG TABLET (COZAAR) PO SCH (09:00)
[2023-06-12 09:56] LABS: ANISOCYTOSIS 1+; ATYPICAL LYMPHOCYTES % 1 % (0-0); BASOPHILS % (MANUAL) 0 % (0-2); EOSINOPHILS % (MANUAL) 0 % (0-7); LYMPHOCYTES % (MANUAL) 7 % (20-46); MONOCYTES % (MANUAL) 14 % (0-11); PLATELET ESTIMATE ADEQUATE (ADEQUATE); TARGET CELLS FEW
[2023-06-12] MEDS: LR 1,000 ML IV SCH (10:00)
[2023-06-12 13:07] LABS: ANTI NUCLEAR AB WITH REFLEX Negative (Negative)
[2023-06-12 23:07] LABS: GAMMA GLUTAMYL TRANSFERASE 586 IU/L (0-60)
[2023-06-13] VITALS: BP_SYST 117; PULSE 68; RESP 18; TEMP 96.5; O2SAT 96
[2023-06-13 02:08] LABS: AFP, TUMOR MARKER 2.5 ng/mL (0.0-8.7)
[2023-06-13 03:06] LABS: HEPATITIS A AB, IgM Negative (Negative); HEPATITIS B CORE AB, IgM Negative (Negative); HEPATITIS B SURFACE AG Negative (Negative); HEPATITIS C VIRUS AB Non Reactive (Non Reactive)
[2023-06-13 04:00] VITALS: RESP 18
[2023-06-13 06:01] LABS: HEMATOCRIT 28.8 % (36-48); HEMOGLOBIN 9.8 g/dL (12.0-16.0); MEAN CORPUSCULAR HEMOGLOBIN 30 pg (27-31); MEAN CORPUSCULAR HGB CONC 34 % (32-36); MEAN CORPUSCULAR VOLUME 87 fL (79.0-98.0); PLATELET COUNT (AUTO) 381 K/uL (130-430); RED CELL DISTRIBUTION WIDTH 19.9 % (9.0-15.0); WHITE BLOOD COUNT (AUTO) 8.4 K/uL (4.8-10.8)
[2023-06-13 06:34] LABS: ALANINE AMINOTRANSFERASE 257 U/L (12-78); ALBUMIN 1.6 g/dL (3.4-4.8); ANION GAP 8 (5-15); ASPARTATE AMINOTRANSFERASE 269 U/L (10-37); CALCIUM 8.1 mg/dL (8.4-11.0); CARBON DIOXIDE 26 mmol/L (23-29); CHLORIDE 102 mmol/L (98-107); GLUCOSE 75 mg/dL (74-106); POTASSIUM 3.4 mmol/L (3.5-5.1); SODIUM SERUM 136 mmol/L (136-145); TOTAL BILIRUBIN 9.9 mg/dL (0.0-1.0); TOTAL PROTEIN, SERUM 4.7 g/dL (6.4-8.3); UREA NITROGEN, BLOOD 8 mg/dL (8-21)
[2023-06-13 08:00] VITALS: O2SAT 99
[2023-06-13 08:07] LABS: ALPHA-1-ANTITRYPSIN, S 220 mg/dL (101-187)
[2023-06-13 08:42] VITALS: BP_SYST 135; PULSE 69; RESP 18; TEMP 97
[2023-06-13 10:17] LABS: ATYPICAL LYMPHOCYTES % 1 % (0-0); BAND % (MANUAL) 1 % (0-6); BASOPHILS % (MANUAL) 0 % (0-2); EOSINOPHILS % (MANUAL) 1 % (0-7); LYMPHOCYTES % (MANUAL) 8 % (20-46); MONOCYTES % (MANUAL) 7 % (0-11); PLATELET ESTIMATE ADEQUATE (ADEQUATE)
[2023-06-13 11:13] VITALS: BP_SYST 135; PULSE 70; RESP 16; TEMP 96.2; O2SAT 93
[2023-06-13 15:05] VITALS: BP_SYST 116; PULSE 71; RESP 16; TEMP 96.8; O2SAT 96
[2023-06-13] MEDS: LACTOBACILLUS RHAMNOSUS GG 1 CAP CAPSULE PO ONE (17:26)
[2023-06-13] MEDS: APIXABAN 2.5 MG TABLET PO SCH (20:34)
[2023-06-14 04:42] VITALS: BP_SYST 118; PULSE 67; RESP 16; O2SAT 95
[2023-06-14 06:35] LABS: BASOPHILS % (AUTO) 0.6 % (0.0-2.0); EOSINOPHILS # (AUTO) 0.2 K/uL (0.0-0.4); EOSINOPHILS % (AUTO) 3.4 % (0.0-4.0); LYMPHOCYTES # (AUTO) 0.6 K/uL (1.0-5.5); LYMPHOCYTES % (AUTO) 13.7 % (20.5-51.5); MEAN CORPUSCULAR HEMOGLOBIN 31 pg (27-31); MEAN CORPUSCULAR HGB CONC 34 % (32-36); MEAN CORPUSCULAR VOLUME 91 fL (79.0-98.0); MONOCYTES # (AUTO) 0.3 K/uL (0.0-1.0); MONOCYTES % (AUTO) 6.4 % (1.7-9.3); NEUTROPHILS # (AUTO) 3.5 K/uL (1.8-7.7); NEUTROPHILS % (AUTO) 75.9 % (40.0-70.0); PLATELET COUNT (AUTO) 208 K/uL (130-430); RED CELL DISTRIBUTION WIDTH 20.1 % (9.0-15.0); WHITE BLOOD COUNT (AUTO) 4.6 K/uL (4.8-10.8)
[2023-06-14 07:08] LABS: ANION GAP 16 (5-15); CARBON DIOXIDE 14 mmol/L (23-29); CHLORIDE 105 mmol/L (98-107); POTASSIUM 3.7 mmol/L (3.5-5.1); SODIUM SERUM 135 mmol/L (136-145)
[2023-06-14 07:09] LABS: ALANINE AMINOTRANSFERASE 79 U/L (12-78); ALBUMIN 0.7 g/dL (3.4-4.8); CREATININE 0.33 mg/dL (0.55-1.30); TOTAL BILIRUBIN 2.7 mg/dL (0.0-1.0); UREA NITROGEN, BLOOD 4 mg/dL (8-21)
[2023-06-14 07:45] LABS: RED BLOOD CELL COUNT(AUTO) 1.52 MIL/uL (4.2-6.2)
[2023-06-14 07:48] LABS: HEMATOCRIT 13.8 % (36-48); HEMOGLOBIN 4.6 g/dL (12.0-16.0)
[2023-06-14 07:57] LABS: ASPARTATE AMINOTRANSFERASE 55 U/L (10-37)
[2023-06-14 07:58] LABS: CALCIUM 6.6 mg/dL (8.4-11.0); GLUCOSE 37 mg/dL (74-106)
[2023-06-14] MEDS ORDERED: PANTOPRAZOLE SODIUM 40 MG/VIAL (PROTONIX) IVP SCH (08:15)
[2023-06-14 08:21] VITALS: BP_SYST 119; PULSE 71; RESP 18; TEMP 97.9; O2SAT 96
[2023-06-14 08:53] LABS: HEMATOCRIT 28.4 % (36-48)
[2023-06-14] MEDS: LACTOBACILLUS RHAMNOSUS GG 1 CAP CAPSULE PO SCH (09:50)
[2023-06-14] MEDS: PANTOPRAZOLE SODIUM 40 MG/VIAL (PROTONIX) IVP ONE (09:51)
[2023-06-14 10:09] LABS: HEMOGLOBIN 9.6 g/dL (12.0-16.0)
[2023-06-14 11:09] VITALS: BP_SYST 148; PULSE 70; RESP 16; TEMP 96.4; O2SAT 93
[2023-06-14 13:06] LABS: ATYPICAL pANCA <1:20 titer (Neg:<1:20); CYTOPLASMIC (C-ANCA) <1:20 titer (Neg:<1:20); CYTOPLASMIC (P-ANCA) <1:20 titer (Neg:<1:20)
[2023-06-14 15:14] VITALS: BP_SYST 132; PULSE 69; RESP 16; TEMP 97.1; O2SAT 96
[2023-06-14 17:06] LABS: ANTI-SMOOTH MUSCLE AB 5 Units (0-19)
[2023-06-14 19:00] VITALS: BP_SYST 129; PULSE 83; RESP 18; TEMP 97.7; O2SAT 98; O2SAT 99
[2023-06-14 20:00] VITALS: BP_SYST 136; PULSE 86; RESP 18; TEMP 97.7; O2SAT 99
[2023-06-14] MEDS: PANTOPRAZOLE SODIUM 40 MG/VIAL (PROTONIX) IVP SCH (22:03)
[2023-06-15] VITALS (7 sets, daily range): BP systolic 112–132; PULSE 73–88; RESP 16–18; TEMP 97.2–98.2; O2SAT 93–99
[2023-06-15 06:02] LABS: BASOPHILS # (AUTO) 0.1 K/uL (0.0-0.2); BASOPHILS % (AUTO) 0.5 % (0.0-2.0); EOSINOPHILS # (AUTO) 0.2 K/uL (0.0-0.4); EOSINOPHILS % (AUTO) 1.5 % (0.0-4.0); HEMATOCRIT 26.5 % (36-48); HEMOGLOBIN 9.1 g/dL (12.0-16.0); LYMPHOCYTES # (AUTO) 1.1 K/uL (1.0-5.5); LYMPHOCYTES % (AUTO) 9.9 % (20.5-51.5); MEAN CORPUSCULAR HEMOGLOBIN 30 pg (27-31); MEAN CORPUSCULAR HGB CONC 34 % (32-36); MEAN CORPUSCULAR VOLUME 89 fL (79.0-98.0); MONOCYTES # (AUTO) 0.8 K/uL (0.0-1.0); MONOCYTES % (AUTO) 7.4 % (1.7-9.3); NEUTROPHILS # (AUTO) 8.7 K/uL (1.8-7.7); NEUTROPHILS % (AUTO) 80.7 % (40.0-70.0); PLATELET COUNT (AUTO) 410 K/uL (130-430); RED BLOOD CELL COUNT(AUTO) 2.99 MIL/uL (4.2-6.2); RED CELL DISTRIBUTION WIDTH 19.7 % (9.0-15.0); WHITE BLOOD COUNT (AUTO) 10.7 K/uL (4.8-10.8)
[2023-06-15 06:55] LABS: ALBUMIN 1.6 g/dL (3.4-4.8); ANION GAP 8 (5-15); CALCIUM 8.1 mg/dL (8.4-11.0); CARBON DIOXIDE 26 mmol/L (23-29); CHLORIDE 100 mmol/L (98-107); CREATININE 0.67 mg/dL (0.55-1.30); GLUCOSE 65 mg/dL (74-106); POTASSIUM 3.4 mmol/L (3.5-5.1); SODIUM SERUM 134 mmol/L (136-145); UREA NITROGEN, BLOOD 7 mg/dL (8-21)
[2023-06-15 07:41] LABS: ALANINE AMINOTRANSFERASE 172 U/L (12-78); ASPARTATE AMINOTRANSFERASE 122 U/L (10-37); TOTAL BILIRUBIN 5.8 mg/dL (0.0-1.0)
[2023-06-15] MEDS ORDERED: MORPHINE 4 MG INJ. 4 MG/ML VIAL IVP PRN (12:30)
[2023-06-15] MEDS: APIXABAN 2.5 MG TABLET PO SCH (20:18)
[2023-06-16 00:30] VITALS: BP_SYST 127; PULSE 70; RESP 16; TEMP 97.1; O2SAT 95
[2023-06-16] MEDS: ACETAMINOPHEN 325 MG TABLET PO PRN (03:25)
[2023-06-16 06:05] LABS: BASOPHILS # (AUTO) 0.1 K/uL (0.0-0.2); BASOPHILS % (AUTO) 0.8 % (0.0-2.0); EOSINOPHILS # (AUTO) 0.1 K/uL (0.0-0.4); EOSINOPHILS % (AUTO) 0.8 % (0.0-4.0); HEMATOCRIT 23.9 % (36-48); HEMOGLOBIN 8.1 g/dL (12.0-16.0); LYMPHOCYTES % (AUTO) 7.9 % (20.5-51.5); MEAN CORPUSCULAR HEMOGLOBIN 30 pg (27-31); MEAN CORPUSCULAR HGB CONC 34 % (32-36); MEAN CORPUSCULAR VOLUME 89 fL (79.0-98.0); MONOCYTES # (AUTO) 0.9 K/uL (0.0-1.0); MONOCYTES % (AUTO) 6.9 % (1.7-9.3); NEUTROPHILS # (AUTO) 10.4 K/uL (1.8-7.7); NEUTROPHILS % (AUTO) 83.6 % (40.0-70.0); PLATELET COUNT (AUTO) 373 K/uL (130-430); RED CELL DISTRIBUTION WIDTH 19.2 % (9.0-15.0); WHITE BLOOD COUNT (AUTO) 12.5 K/uL (4.8-10.8)
[2023-06-16 06:32] LABS: ALANINE AMINOTRANSFERASE 130 U/L (12-78); ALBUMIN 1.5 g/dL (3.4-4.8); ANION GAP 8 (5-15); ASPARTATE AMINOTRANSFERASE 74 U/L (10-37); CALCIUM 8.1 mg/dL (8.4-11.0); CARBON DIOXIDE 25 mmol/L (23-29); CHLORIDE 99 mmol/L (98-107); CREATININE 0.66 mg/dL (0.55-1.30); GLUCOSE 95 mg/dL (74-106); POTASSIUM 3.2 mmol/L (3.5-5.1); SODIUM SERUM 132 mmol/L (136-145); TOTAL BILIRUBIN 5.1 mg/dL (0.0-1.0); TOTAL PROTEIN, SERUM 4.8 g/dL (6.4-8.3); UREA NITROGEN, BLOOD 9 mg/dL (8-21)
[2023-06-16 08:00] VITALS: BP_SYST 117; PULSE 60; RESP 20; TEMP 96.6; O2SAT 99
[2023-06-16 11:08] VITALS: BP_SYST 116; PULSE 69; RESP 16; TEMP 97.1; O2SAT 99
[2023-06-16 15:08] VITALS: BP_SYST 131; PULSE 80; RESP 16; TEMP 97.8; O2SAT 92
[2023-06-16 19:00] VITALS: BP_SYST 112; PULSE 71; RESP 18; TEMP 97.9; O2SAT 96
[2023-06-16] MEDS: POTASSIUM CHLORIDE 40 MEQ, LIDOCAINE JECT 2% PF 100 MG 75 MG in NS 250 ML IV ONE (23:00)
[2023-06-17] VITALS (8 sets, daily range): BP systolic 100–119; PULSE 67–81; RESP 15–22; TEMP 97.7–99; O2SAT 96–99
[2023-06-17 06:39] LABS: BASOPHILS % (AUTO) 0.5 % (0.0-2.0); EOSINOPHILS # (AUTO) 0.2 K/uL (0.0-0.4); EOSINOPHILS % (AUTO) 2.7 % (0.0-4.0); HEMATOCRIT 23.3 % (36-48); HEMOGLOBIN 7.9 g/dL (12.0-16.0); MEAN CORPUSCULAR HEMOGLOBIN 30 pg (27-31); MEAN CORPUSCULAR HGB CONC 34 % (32-36); MEAN CORPUSCULAR VOLUME 89 fL (79.0-98.0); MONOCYTES # (AUTO) 0.7 K/uL (0.0-1.0); MONOCYTES % (AUTO) 8.8 % (1.7-9.3); NEUTROPHILS # (AUTO) 6.4 K/uL (1.8-7.7); PLATELET COUNT (AUTO) 378 K/uL (130-430); RED BLOOD CELL COUNT(AUTO) 2.61 MIL/uL (4.2-6.2); RED CELL DISTRIBUTION WIDTH 19.5 % (9.0-15.0); WHITE BLOOD COUNT (AUTO) 8.4 K/uL (4.8-10.8)
[2023-06-17 07:16] LABS: ALANINE AMINOTRANSFERASE 101 U/L (12-78); ALBUMIN 1.4 g/dL (3.4-4.8); ANION GAP 6 (5-15); ASPARTATE AMINOTRANSFERASE 46 U/L (10-37); CALCIUM 8.1 mg/dL (8.4-11.0); CARBON DIOXIDE 26 mmol/L (23-29); CHLORIDE 103 mmol/L (98-107); CREATININE 0.65 mg/dL (0.55-1.30); GLUCOSE 94 mg/dL (74-106); POTASSIUM 3.1 mmol/L (3.5-5.1); SODIUM SERUM 135 mmol/L (136-145); TOTAL BILIRUBIN 3.7 mg/dL (0.0-1.0); TOTAL PROTEIN, SERUM 4.6 g/dL (6.4-8.3); UREA NITROGEN, BLOOD 8 mg/dL (8-21)
[2023-06-17] MEDS: POTASSIUM CHLORIDE 40 MEQ, LIDOCAINE JECT 2% PF 100 MG 75 MG in NS 250 ML IV ONE (11:30)
[2023-06-18 00:22] VITALS: BP_SYST 109; PULSE 64; RESP 17; TEMP 98.8; O2SAT 95
[2023-06-18 02:08] VITALS: BP_SYST 119; PULSE 81; RESP 17; TEMP 98.2; O2SAT 99
[2023-06-18 06:56] LABS: BASOPHILS # (AUTO) 0.1 K/uL (0.0-0.2); EOSINOPHILS # (AUTO) 0.3 K/uL (0.0-0.4); EOSINOPHILS % (AUTO) 4.3 % (0.0-4.0); HEMATOCRIT 22.5 % (36-48); HEMOGLOBIN 7.7 g/dL (12.0-16.0); LYMPHOCYTES # (AUTO) 0.9 K/uL (1.0-5.5); MEAN CORPUSCULAR HEMOGLOBIN 31 pg (27-31); MEAN CORPUSCULAR HGB CONC 34 % (32-36); MEAN CORPUSCULAR VOLUME 91 fL (79.0-98.0); MONOCYTES # (AUTO) 0.7 K/uL (0.0-1.0); MONOCYTES % (AUTO) 9.6 % (1.7-9.3); NEUTROPHILS # (AUTO) 4.8 K/uL (1.8-7.7); NEUTROPHILS % (AUTO) 71.1 % (40.0-70.0); PLATELET COUNT (AUTO) 351 K/uL (130-430); RED BLOOD CELL COUNT(AUTO) 2.48 MIL/uL (4.2-6.2); RED CELL DISTRIBUTION WIDTH 19.5 % (9.0-15.0); WHITE BLOOD COUNT (AUTO) 6.8 K/uL (4.8-10.8)
[2023-06-18 07:16] LABS: ALANINE AMINOTRANSFERASE 87 U/L (12-78); ALBUMIN 1.5 g/dL (3.4-4.8); ANION GAP 6 (5-15); ASPARTATE AMINOTRANSFERASE 56 U/L (10-37); CARBON DIOXIDE 24 mmol/L (23-29); CHLORIDE 106 mmol/L (98-107); GLUCOSE 83 mg/dL (74-106); POTASSIUM 3.7 mmol/L (3.5-5.1); SODIUM SERUM 136 mmol/L (136-145); TOTAL BILIRUBIN 3.4 mg/dL (0.0-1.0); TOTAL PROTEIN, SERUM 4.8 g/dL (6.4-8.3); UREA NITROGEN, BLOOD 6 mg/dL (8-21)
[2023-06-18 08:07] VITALS: O2SAT 96
[2023-06-18 08:13] VITALS: BP_SYST 140; PULSE 72; RESP 14; TEMP 98.9; O2SAT 96
[2023-06-18 10:46] VITALS: BP_SYST 136; PULSE 76; RESP 16; TEMP 98.1; O2SAT 96
[2023-06-18 11:30] VITALS: BP_SYST 136; PULSE 76; RESP 17; TEMP 98.1; O2SAT 95
[2023-06-18] MEDS ORDERED: PRO40 PO (11:57)
== END 2023-06-18 13:30 | disposition home health service (06) | DRG 435 ==
LOC: SED 19:25 → SMU 22:09
PROVIDERS: ADMIT Specialist; ATTEND Specialist
PROC: BF11YZZ Fluoroscopy of Biliary and Pancreatic Ducts using Other Contrast (ICD-10-PCS; 2023-06-12)
PROC: BF5C2Z0 Other Imaging of Hepatobiliary System, All using Fluorescing Agent, Intraoperative (ICD-10-PCS; 2023-06-12)
PROC: 0FPD8DZ Removal of Intraluminal Device from Pancreatic Duct, Via Natural or Artificial Opening Endoscopic (ICD-10-PCS; 2023-06-12)
PROC: 0F7D8DZ Dilation of Pancreatic Duct with Intraluminal Device, Via Natural or Artificial Opening Endoscopic (ICD-10-PCS; principal; 2023-06-12 09:10)
DX: C25.9 Malignant neoplasm of pancreas, unspecified (principal); K83.1 Obstruction of bile duct; K85.90 Acute pancreatitis without necrosis or infection, unspecified; E87.1 Hypo-osmolality and hyponatremia; K91.89 Other postprocedural complications and disorders of digestive system; K21.9 Gastro-esophageal reflux disease without esophagitis; I10 Essential (primary) hypertension; E03.9 Hypothyroidism, unspecified; D64.9 Anemia, unspecified; E88.09 Other disorders of plasma-protein metabolism, not elsewhere classified; Z79.01 Long term (current) use of anticoagulants; Z86.16 Personal history of COVID-19; Z86.718 Personal history of other venous thrombosis and embolism; Z88.2 Allergy status to sulfonamides; Z79.899 Other long term (current) drug therapy; Z90.49 Acquired absence of other specified parts of digestive tract; Z90.712 Acquired absence of cervix with remaining uterus
CPT/HCPCS: 36415; 71045; 74330; 76000; 76705; 80048; 80053; 80074; 80076; 80307; 81000; 81001; 81015; 82103; 82105; 82948; 83516; 83540; 83550; 83690; 84443; 85007; 85018; 85025; 85027; 85610; 85730; 86038; 86256; 86301; 86886; 86900; 86901; 87081; 88108; 93005; 97110-GP; 97112-GP; 97116-GP; 97530-GP; 99285; C1769; C9113; G0480; G0482; J0330; J1644; J2270; J2405; J2704; J3480; J7050; J7120; Q9965; Q9966; Q9967